=== PATIENT | female | born 1945 | race Native Hawaiian/Other Pacific Islander ===

== ENCOUNTER 2016-11-21 13:20 | Outpatient (CLI) | payer OTHER | END 2016-11-21 19:29 | disposition home or self-care (01) | LOC: RAD 13:20 | DX: R05 Cough (principal) ==

== ENCOUNTER 2016-12-16 07:51 | Outpatient (CLI) | payer OTHER | END 2016-12-16 08:55 | disposition home or self-care (01) | LOC: RAD 07:51 | DX: M81.0 Age-related osteoporosis without current pathological fracture (principal) ==

== ENCOUNTER 2017-05-20 17:55 | Outpatient (CLI) | payer OTHER | END 2017-05-20 17:58 | disposition short-term general hospital (02) | LOC: AMB 17:55 | DX: M25.552 Pain in left hip (principal); W18.39XA Other fall on same level, initial encounter; Y92.096 Garden or yard of other non-institutional residence as the place of occurrence of the external cause | CPT/HCPCS: A0425; A0429 ==

== ENCOUNTER 2017-05-20 18:31 | Emergency (ER) | payer OTHER ==
[~2017-05-20] VITALS: Ht 157.5 cm; Wt 55.8 kg
[2017-05-20 18:05] VITALS: TEMP 98.3
[2017-05-20 22:12] VITALS: BP 171/80
== END 2017-05-20 22:56 | disposition short-term general hospital (02) ==
LOC: ED 18:31
PROC: 0T9B70Z Drainage of Bladder with Drainage Device, Via Natural or Artificial Opening (ICD-10-PCS; principal; 2017-05-20)
DX: S72.012A Unspecified intracapsular fracture of left femur, initial encounter for closed fracture (principal); W18.39XA Other fall on same level, initial encounter; Y92.098 Other place in other non-institutional residence as the place of occurrence of the external cause
CPT/HCPCS: 51702; 96365; 96375; 99285; J1170; J1885

== ENCOUNTER 2017-10-21 20:20 | Emergency (ER) | payer OTHER ==
[~2017-10-21] VITALS: Ht 152.4 cm; Wt 54.4 kg
[2017-10-21 20:25] VITALS: BP 159/69; TEMP 99.3
[2017-10-21 21:25] LABS: PLATELET COUNT 232 K/uL (152-353)
[2017-10-21 22:24] LABS: POTASSIUM 3.3 mmol/L (3.6-5.2)
== END 2017-10-21 22:24 | disposition home or self-care (01) ==
LOC: ED 20:20
DX: L03.211 Cellulitis of face (principal); K04.7 Periapical abscess without sinus; K05.10 Chronic gingivitis, plaque induced
CPT/HCPCS: 36415; 80053; 85027; 96372; 99283; J0696; J1885

== ENCOUNTER 2017-11-13 09:00 | Outpatient (CLI) | payer OTHER ==
[~2017-11-13] VITALS: Ht 162.6 cm; Wt 51.7 kg
== END 2017-11-13 23:01 | disposition home or self-care (01) ==
LOC: INF 09:00
DX: M85.80 Other specified disorders of bone density and structure, unspecified site (principal)
CPT/HCPCS: 36415; 82310; 82565; 96361; 96365; J3489

== ENCOUNTER 2018-11-16 09:15 | Outpatient (CLI) | payer OTHER ==
[~2018-11-16] VITALS: Ht 154.9 cm; Wt 56.7 kg
[2018-11-16 09:55] VITALS: BP 147/55; TEMP 97.6
== END 2018-11-16 11:45 | disposition home or self-care (01) ==
LOC: INF 09:15 → MAMMO 10:00 → INF 11:45
DX: Z12.31 Encounter for screening mammogram for malignant neoplasm of breast (principal); M81.0 Age-related osteoporosis without current pathological fracture
CPT/HCPCS: 36415; 82310; 82565; 96365; J3489

== ENCOUNTER 2019-11-12 08:28 | Outpatient (CLI) | payer OTHER | END 2019-11-12 20:34 | disposition home or self-care (01) | LOC: LAB 08:28 | DX: Z20.828 Contact with and (suspected) exposure to other viral communicable diseases (principal) | CPT/HCPCS: 87635; G2023; U00003 ==

== ENCOUNTER 2020-01-07 16:55 | Emergency (ER) | payer OTHER ==
[~2020-01-07] VITALS: Ht 154.9 cm; Wt 56.7 kg
[2020-01-07 20:10] VITALS: BP 154/62; TEMP 98.5
== END 2020-01-07 20:11 | disposition home or self-care (01) ==
LOC: ED 16:55
DX: L25.9 Unspecified contact dermatitis, unspecified cause (principal)
CPT/HCPCS: 96372; 99283; J2930

== ENCOUNTER 2020-01-12 19:07 | Emergency (ER) | payer OTHER ==
[~2020-01-12] VITALS: Ht 154.9 cm; Wt 56.7 kg
[2020-01-12 20:55] LABS: PLATELET COUNT 341 K/uL (152-353)
[2020-01-12 21:06] LABS: POTASSIUM 3.9 mmol/L (3.6-5.2)
[2020-01-12 21:28] LABS: PARTIAL THROMBOPLASTIN TIME 19.8 SECONDS (24.5-33.6)
[2020-01-12 22:10] VITALS: BP 151/55; TEMP 98.4
== END 2020-01-12 22:10 | disposition home or self-care (01) ==
LOC: ED 19:07
PROVIDERS: Family Medicine
DX: S70.02XA Contusion of left hip, initial encounter (principal); S70.12XA Contusion of left thigh, initial encounter; W18.39XA Other fall on same level, initial encounter; Y92.89 Other specified places as the place of occurrence of the external cause
CPT/HCPCS: 80053; 81000; 85027; 85379; 85610; 85730; 99283

== ENCOUNTER 2020-03-20 13:11 | Outpatient (CLI) | payer OTHER | END 2020-03-20 19:38 | disposition home or self-care (01) | LOC: LAB 13:11 | PROVIDERS: ATTEND Family Medicine | DX: Z20.828 Contact with and (suspected) exposure to other viral communicable diseases (principal) | CPT/HCPCS: 87635; G2023; U0003 ==

== ENCOUNTER 2021-04-02 09:46 | Outpatient (CLI) | payer OTHER | END 2021-04-02 20:35 | disposition home or self-care (01) | LOC: RAD 09:46 | PROVIDERS: ATTEND Family Medicine | DX: G89.4 Chronic pain syndrome (principal); M54.59 Other low back pain; M25.552 Pain in left hip ==

== ENCOUNTER 2021-04-15 13:23 | Outpatient (CLI) | payer OTHER | END 2021-04-15 19:27 | disposition home or self-care (01) | LOC: RAD 13:23 | PROVIDERS: ATTEND Family Medicine | DX: S32.000A Wedge compression fracture of unspecified lumbar vertebra, initial encounter for closed fracture (principal); Z78.0 Asymptomatic menopausal state; M54.50 Low back pain, unspecified; M25.552 Pain in left hip; Y92.9 Unspecified place or not applicable ==

== ENCOUNTER 2021-08-03 08:12 | Outpatient (CLI) | payer OTHER | END 2021-08-03 18:57 | disposition home or self-care (01) | LOC: MAMMO 08:12 | PROVIDERS: ATTEND Family Medicine | DX: Z12.31 Encounter for screening mammogram for malignant neoplasm of breast (principal); Z78.0 Asymptomatic menopausal state ==

== ENCOUNTER 2021-08-18 08:32 | Outpatient (CLI) | payer OTHER | END 2021-08-18 19:14 | disposition home or self-care (01) | LOC: US 08:32 | PROVIDERS: ATTEND Family Medicine | DX: R92.8 Other abnormal and inconclusive findings on diagnostic imaging of breast (principal) ==

== ENCOUNTER 2022-04-30 16:38 | Emergency (ER) | payer OTHER ==
[~2022-04-30] VITALS: Ht 154.9 cm; Wt 56.7 kg
[2022-04-30 19:35] VITALS: BP 131/68; TEMP 97.1
== END 2022-04-30 19:40 | disposition home or self-care (01) ==
LOC: ED 16:38
DX: U07.1 COVID-19 (principal)
CPT/HCPCS: 87635; 99282; U0003

== ENCOUNTER 2022-05-26 16:55 | Outpatient (CLI) | payer OTHER | END 2022-05-26 19:55 | disposition home or self-care (01) | LOC: RAD 16:55 | PROVIDERS: ATTEND Internal Medicine Hematology & Oncology | DX: R06.02 Shortness of breath (principal); C50.212 Malignant neoplasm of upper-inner quadrant of left female breast ==